=== PATIENT | female | born 1995 | race Caucasian/White ===

== ENCOUNTER 2016-05-22 12:43 | Outpatient (CLI) | payer MEDICAID | END 2016-05-22 12:44 | disposition home or self-care (01) | DX: Z36 Encounter for antenatal screening of mother (principal) ==

== ENCOUNTER 2016-07-02 12:24 | Outpatient (CLI) | payer MEDICAID | END 2016-07-02 12:25 | disposition home or self-care (01) | DX: Z36 Encounter for antenatal screening of mother (principal) ==

== ENCOUNTER 2016-08-28 08:00 | Outpatient (CLI) | payer MEDICAID | END 2016-08-28 23:59 | disposition home or self-care (01) | DX: Z34.83 Encounter for supervision of other normal pregnancy, third trimester (principal); Z11.3 Encounter for screening for infections with a predominantly sexual mode of transmission ==

== ENCOUNTER 2016-09-12 20:12 | Outpatient (CLI) | payer MEDICAID | END 2016-09-12 21:30 | disposition home or self-care (01) | DX: Z34.03 Encounter for supervision of normal first pregnancy, third trimester (principal) ==

== ENCOUNTER 2016-09-29 22:11 | Outpatient (CLI) | payer MEDICAID ==
[2016-09-29 22:34] VITALS: BP 125/63
== END 2016-09-29 23:00 | disposition home or self-care (01) ==
LOC: WFO 22:11 → OB 22:12 → WFO 23:00
PROVIDERS: ATTEND Nurse Practitioner Obstetrics & Gynecology
DX: O36.8130 Decreased fetal movements, third trimester, not applicable or unspecified (principal); Z3A.40 40 weeks gestation of pregnancy
CPT/HCPCS: 99212

== ENCOUNTER 2016-10-04 19:02 | Outpatient (CLI) | payer MEDICAID ==
[2016-10-04 19:18] VITALS: BP 127/76
== END 2016-10-04 20:10 | disposition home or self-care (01) ==
LOC: WFO 19:02 → OB 19:07 → WFO 20:10
PROVIDERS: ATTEND Nurse Practitioner Obstetrics & Gynecology
DX: O47.1 False labor at or after 37 completed weeks of gestation (principal); Z3A.40 40 weeks gestation of pregnancy
CPT/HCPCS: 99213

== ENCOUNTER 2016-10-06 00:40 | Inpatient (IN) | payer MEDICAID ==
[2016-10-06] MEDS ORDERED: SODIUM CHLORIDE FLUSH 0.9% 10 ML SYRINGE IVP ONE (01:09)
[2016-10-06] MEDS ORDERED: LACTATED RINGERS 1,000 ML IV ONE (01:29)
[2016-10-06 01:41] LABS: BASOPHILS % (AUTO) 0.3 %; EOSINOPHILS # (AUTO) 0.1 10^3/uL (0.0-0.7); EOSINOPHILS % (AUTO) 0.6 %; HCT - HEMATOCRIT 36.5 % (37.0-47.0); HGB - HEMOGLOBIN 12.7 g/dL (12.0-16.0); LYMPHOCYTES # (AUTO) 1.6 10^3/uL (1.5-3.5); LYMPHOCYTES % (AUTO) 12.5 %; MEAN CORPUSCULAR HEMOGLOBIN 31.5 pg (27.0-31.0); MEAN CORPUSCULAR HGB CONC 34.8 g/dL (32.0-36.0); MEAN CORPUSCULAR VOLUME 90.7 fL (81.0-99.0); MEAN PLATELET VOLUME 10.3 fL (7.9-10.8); MONOCYTES # (AUTO) 1.3 10^3/uL (0.0-1.0); MONOCYTES % (AUTO) 10.1 %; NEUTROPHILS % (AUTO) 76.5 %; RED BLOOD COUNT 4.02 10^6/uL (4.20-5.40); RED CELL DISTRIBUTION WIDTH 12.9 % (12.0-15.0); UNCORRECTED WHITE BLOOD COUNT 13.1 x10^3/uL; WHITE BLOOD COUNT 13.1 x10^3/uL (4.8-10.8)
[2016-10-06] MEDS ORDERED: SODIUM CHLORIDE FLUSH 0.9% 10 ML SYRINGE IVP PRN (01:45)
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
--- NOTE | 2016-10-06 02:09 | PROVIDER PROGRESS NOTE ---
Labor Progress Note - Instructions [place]/Slash: -Left hand click circles element as positive or present. -Right hand click slashes element as negative or not present. - Uterine Monitoring Uterine Monitoring Mode: positive: External toco Contraction Intensity: positive: Strong Uterine Resting Tone: positive: Soft - Monitoring Heart Rate Variability: positive: Moderate (6-25 bmp) Accelerations: positive: Present, 15x15 Decelerations: positive: Variable Strip Review: positive: Category II - Vaginal Exam Dilation (in cm): 5 Effacement (%): 90 - Labor Progress Note Labor Progress Note/Additional Text: S: Pt breathing through contractions in the bed. She is feeling most of her contractions in her front and starting to feel more intense contractions. O: SVE on admit /-2, intact membranes. FHR baseline 120, moderate variability, + accels, variable decelerations with contractions-slightly improved with position changes. A: FHR category II GBS negative Membranes intact P: Continuous monitoring Dr. King notified
[2016-10-06] MEDS ORDERED: OXYTOCIN/LACTATED RINGERS 250 ML IV ONE ×2 (02:12→12:46)
[2016-10-06] MEDS ORDERED: LIDOCAINE 1% 50 ML MDV ONE (02:25)
[2016-10-06] MEDS: LACTATED RINGERS 1,000 ML IV SCH ×3 (03:26→08:28)
[2016-10-06] MEDS ORDERED: CALCIUM CARBONATE CHEW 500 MG TABLET PO PRN (03:55)
--- NOTE | 2016-10-06 03:57 | PROVIDER PROGRESS NOTE ---
Labor Progress Note - Instructions [place]/Slash: -Left hand click circles element as positive or present. -Right hand click slashes element as negative or not present. - Uterine Monitoring Uterine Monitoring Mode: positive: External toco Contraction Intensity: positive: Strong Uterine Resting Tone: positive: Soft - Monitoring Monitor Mode: positive: External ultrasound Heart Rate Variability: positive: Moderate (6-25 bmp) Accelerations: positive: Present, 15x15 Decelerations: positive: Variable Strip Review: positive: Category II - Vaginal Exam Dilation (in cm): 0 Effacement (%): 100 Station: positive: 0
[2016-10-06] MEDS: CALCIUM CARBONATE CHEW 500 MG TABLET PO SCH ×5 (04:09→22:04)
[2016-10-06] MEDS ORDERED: SODIUM CHLORIDE FLUSH 0.9% 10 ML SYRINGE IVP SCH (06:00)
--- NOTE | 2016-10-06 06:05 | PROVIDER PROGRESS NOTE ---
Labor Progress Note - Instructions [place]/Slash: -Left hand click circles element as positive or present. -Right hand click slashes element as negative or not present. - Uterine Monitoring Uterine Monitoring Mode: positive: External toco Contraction Intensity: positive: Strong Uterine Resting Tone: positive: Soft - Monitoring Monitor Mode: positive: External ultrasound Heart Rate Variability: positive: Moderate (6-25 bmp) Accelerations: positive: Present, 15x15 Decelerations: positive: Variable Strip Review: positive: Category II - Vaginal Exam Effacement (%): 100 Station: positive: -1 - Labor Progress Note Labor Progress Note/Additional Text: S: Feeling strong urge to push with contractions. Requesting pain management. supportive at bedside. O: SVE anterior cervical lip with slight edema, otherwise complete. FHR baseline 140, +accels, variable decelerations with contractions improved with position change. O2 via nonrebreather mask on for since approximately 0230. A: 21yo @41.0wks gestation by L=9.1wk U/S Active labor GBS neg P: Anesthesia called in attempt to make patient comfortable and avoid the urge to push. Goal is to allow cervix to complete dilate and efface prior to any further attempt to push. Dr. King consulted and agrees with above plan. Continuous monitoring.
[2016-10-06] MEDS ORDERED: fent/BUPIV 2 MCG/0.125% 250 ML EP ONE (06:48)
[2016-10-06] MEDS ORDERED: ROPIVACAINE 0.2% PF 10 ML VIAL EPI ONE (07:20)
--- NOTE | 2016-10-06 08:52 | PROVIDER PROGRESS NOTE ---
Labor Progress Note - Instructions [place]/Slash: -Left hand click circles element as positive or present. -Right hand click slashes element as negative or not present. - Uterine Monitoring Uterine Monitoring Mode: positive: External toco Contraction Intensity: positive: Strong Uterine Resting Tone: positive: Soft - Monitoring Monitor Mode: positive: External ultrasound Heart Rate Variability: positive: Moderate (6-25 bmp) Accelerations: positive: Present, 15x15 Decelerations: positive: Late, Variable Strip Review: positive: Category II - Labor Progress Note Labor Progress Note/Additional Text: S: Pt feeling comfortable with epidural. sleeping at bedside. O: Contractions palpate firm every 4-6 minutes lasting 60-120 seconds with soft resting tone. FHR baseline 120, +accels, variable decelerations with contractions, few late decelerations, Moderate variability. A: 21yo @ 41.0wks gestation by L=9.1wk U/S GBS negative AROM x 6 hours P: Continuous monitoring Continue position changes in bed with peanut ball. Plan to check for resolution of anterior cervical lip. Dr. King aware of progress. Anticipate spontaneous vaginal delivery
[2016-10-06] MEDS ORDERED: WITCH HAZEL/GLYCERIN 1 EACH MED..PAD TOP PRN (12:46)
[2016-10-06] MEDS ORDERED: HYDROCORTISONE/PRAMOXINE 10 GM PR PRN (12:46)
[2016-10-06] MEDS ORDERED: HYDROcod/ACETAM 5/325 MG TABLET PO PRN (12:46)
--- NOTE | 2016-10-06 12:52 | DELIVERY NOTE ---
Delivery Note - Instructions [place]/Slash: -Left hand click circles element as positive or present. -Right hand click slashes element as negative or not present. - Labor Labor: positive: Spontaneous, Augmented by ARM - Delivery Method Delivery Method: positive: Spontaneous vaginal delivery - Presentation Presentation: positive: Vertex, SADAF - left occiput anterior - Nuchal Cord Nuchal Cord: positive: None - Amniotic Fluid Description Amniotic Fluid Description: positive: Light meconium - Laceration Laceration: positive: 2nd degree, Labial - Suture Suture Type: positive: Vicryl, Chromic Suture Size: positive: 3-0 - Delivery Outcome Delivery Outcome: positive: Livebirth - [place]: positive: Placed in direct skin contact with mother, Stimulated, Warmed , [place] used sex: positive: Male - Cord Cord: positive: 3 vessels - Placenta Placenta: positive: Intact, Spontaneous - Estimated Blood Loss Estimated Blood Loss (in cc): 250 - Post Delivery Events Post Delivery Events: positive: No post delivery events - Delivery Comments (Free Text/Narrative) Delivery Comments (Free Text/Narrative): Labor: This 21yo @ 41.0wks gestation by L=9.1wk U/S presented at 0100 in active labor. Cervix was 5/90/-2 and vertex. FHR demonstrated category II pattern throughout. AROM 0216 and was noted to be a moderate amount of light meconium fluid. Patient progressed to complete with anterior lip at approximately 0530 at which time the patient felt a strong urge to push. Trial of pushing caused the anterior cervical lip to swell. The patient then requested an epidural for pain management and was placed upon maternal request. Patient was able to rest comfortable and avoid the urge to push until adequate resolution of the anterior lip was achieved. Patient progressed to c/c/[address] King attending physician and Dr. Russell attending solution lead were both called to the bedside to be present for the related to recurrent variable and late decelerations with contractions. Normal SVB of viable male in SADAF position. No nuchal cord. Apgars were 9/ 9 at 1212 on 10/07/2016. The umbilical cord was allowed to stop pulsating and was then doubly clamped and cut by FOB. Cord blood was obtained. Placenta delivered spontaneously and intact @ 1218. 3VC. Pitocin administered via IV for hemostasis. EBL 250mL. Uterine fundus firm and there is no excessive bleeding. The perineum, vagina, and cervix were inspected and found to have 2nd degree midline laceration repaired with 3-[address]-1 needle and minor left labial laceration was repaired with 3-0 chromic on an SH in standard fashion under sterile conditions. Vaginal examination following repair was done. Tissues well approximated. initiated. Family bonding well. Both mother and baby are in stable condition.
[2016-10-06] MEDS ORDERED: LACTATED RINGERS 1,000 ML IV SCH (13:00)
[2016-10-06] MEDS: IBUPROFEN 800 MG TABLET PO SCH ×2 (15:34→20:54)
[2016-10-06] MEDS: ACETAMINOPHEN 500 MG TABLET PO SCH ×2 (15:34→23:40)
[2016-10-06] MEDS: DOCUSATE SODIUM 100 MG CAPSULE PO SCH (20:54)
[2016-10-07] MEDS: IBUPROFEN 800 MG TABLET PO SCH ×3 (04:10→18:47)
[2016-10-07] MEDS: ACETAMINOPHEN 500 MG TABLET PO SCH (07:43)
[2016-10-07] MEDS: CALCIUM CARBONATE CHEW 500 MG TABLET PO SCH (07:43)
[2016-10-07] MEDS: DOCUSATE SODIUM 100 MG CAPSULE PO SCH (07:44)
--- NOTE | 2016-10-07 08:31 | PROVIDER PROGRESS NOTE ---
Subjective - Subjective Subjective: S: Bonding well with baby. from left breast without difficulty. Baby having trouble latching on the right breast - planning to work with nurse today. Pain well controlled with ibuprofen and tylenol. Bleeding decreased. O: Heart RRR w/o M/G/R, lungs CTAB. Abdomen soft and nontender with fundus firm at U-1. Edema noted to extremities bilaterally as expected with amount of IV fluids administered during labor. +BM soft. A: 21yo -->P1 PPD#1 s/p SVB P: Continue routine self care and meds. Work with nurses on today. Plan discharge home tomorrow. Objective - Vital Signs/Intake & Output Vital Signs: Vital Signs x48h Temp Pulse Resp BP BP Pulse Ox 10/07/16 07:29 36.5 C 82 18 115/60 99 10/07/16 04:10 36.8 C 85 16 117/55 L 100 Intake & Output: Intake & Output 10/04/16 10/05/16 10/06/16 10/07/16 23:59 23:59 23:59 23:59 Output Total 2360 Balance -2360 - Lab Results Fish Bones: 10/06/16 01:15
[2016-10-07] MEDS: ONDANSETRON ODT 4 MG TABLET TL PRN ×2 (10:50→18:47)
[2016-10-07] MEDS ORDERED: PANTOPRAZOLE 40 MG TABLET PO SCH (23:45)
[2016-10-08] MEDS: IBUPROFEN 800 MG TABLET PO SCH ×2 (01:03→06:52)
[2016-10-08] MEDS: ONDANSETRON ODT 4 MG TABLET TL PRN ×2 (01:04→06:53)
[2016-10-08] MEDS: ACETAMINOPHEN 500 MG TABLET PO SCH ×2 (06:59→07:51)
[2016-10-08] MEDS ORDERED: PANTOPRAZOLE 40 MG TABLET PO SCH (07:00)
[2016-10-08 08:04] VITALS: BP 126/72
--- NOTE | 2016-10-08 08:23 | Discharge Plan ---
Discharge Plan Disposition: 01 Home, Self Care Condition: Good Diet: Regular Activity Restrictions: No Restrictions Shower Restrictions: No Driving Restrictions: No Weight Bearing: Full Weight Additional Instructions or Follow Up instructions: S: Bonding well with baby. without difficulty - baby having transitional stools since yesterday. Baby cluster fed throughout the night. Pain well controlled with ibuprofen. Pt having a flare up of her IBS, having some bowel discomfort and GERD. Bleeding decreased and is light. Perineum comfortable. Overall significant decrease in discomfort from yesterday. O: Heart RRR w/o M/G/R. Lungs CTAB. Abdomen soft and nontender with fundus firm at U-2. Light lochia rubra. Repair without edema. Bilateral LE's mild edema - improved from yesterday. Yasmin's neg. P: Reviewed pp self care and warning signs. Rx handwritten and given to patient for Ibuprofen 800mg 1 tab PO q 8hrs PRN pain # 60 with 1 refill and Colace 100mg 1 tab PO PRN constipation #60 with 1 refill. Pt planning mini-pill at 6 weeks pp. F/u with myself and [facility] at 2 and 6 weeks. Pt verbalized understanding and agrees to above plan. Denies further questions or concerns today. No Smoking: If you smoke, Please STOP! Call for help. Follow-up with: Alice Dyer CNM, JOSE [Provider Admit Priv/Credential] -
[2016-10-08] MEDS ORDERED: CALCIUM CARBONATE CHEW 500 MG TABLET PO SCH (09:00)
[2016-10-08] MEDS: DOCUSATE SODIUM 100 MG CAPSULE PO SCH (09:24)
--- NOTE | 2016-10-08 09:57 | Labor Flowsheet ---
Labor Flowsheet Datetime Report Generated by CPN: 10/08/2016 09:57 Datetime: 10/07/2016 23:39 Temperature (F): 97.7 Temperature (C): 36.5 Temperature (C): 36.5 LaborFlag: Labor Datetime: 10/07/2016 23:38 VITAL SIGNS NBP Sys/Emily/Mean (mmHg): 128 : 74 : 84 Pulse: 73 Datetime: 10/07/2016 07:29 SpO2 (%): 99 Datetime: 10/06/2016 11:45 UTERINE ACTIVITY Monitor Mode: External Monitor Interventions for UA: [place] Adjusted Frequency (min): 2-3 Quality: Strong Duration (sec): 60-70 Pattern: Normal: <= 5 Contractions in 10 Minutes Resting Tone (Palpate): Relaxed Contraction Comments: Althea B. palpating u/cs/ toco not tracing well ASSESSMENT A Monitor Mode: External US FHR Baseline Rate : 150 Variability: Moderate 6-25 bpm Decelerations: Variable Category: Category II PATIENT CARE Oxygen Amount (LPM): 10 Oxygen Method: Non-Rebreather Datetime: 10/06/2016 11:15 Accelerations: 15X15 Datetime: 10/06/2016 10:32 COMMUNICATION Communication: Provider at Bedside Communication Comments: Dr King at bedside, evaluating progress Datetime: 10/06/2016 10:29 Vaginal Exam Comments: pushing well with U/Cs Datetime: 10/06/2016 10:25 Provider Notified (Name): Dr King Notification Reason: Status Update; Status; Labor Status Datetime: 10/06/2016 10:11 Stage of : Labor Stage 2 Comments: 1011- Alice Gomez here Datetime: 10/06/2016 10:10 VAGINAL EXAM Dilatation (cm): 10.0 Effacement (%): 100 Station: 2 Exam by: SHAYE Navarro Vaginal Bleeding: Normal Show Cervix, Consistency: Soft Cervix, Position: Anterior Position 'A': Left Occipital Anterior Procedures: Sterile Vag Exam Patient Position/Activity: Left Tilt Datetime: 10/06/2016 10:09 ASSESSMENT E FHR Baseline Rate : 90 Datetime: 10/06/2016 10:08 Actions for Decelerations: Side to Side Datetime: 10/06/2016 09:49 Hygiene: Natacha Care; Underpad Changed I/O Interventions: Straight Cath (ml) @ 425 ml Datetime: 10/06/2016 09:14 FHR Baseline Changes: No Baseline Change Datetime: 10/06/2016 08:39 Patient Care Comments: Repositioned to far left/peanut ball Datetime: 10/06/2016 07:44 Comments: Returned to R side for better tracing Datetime: 10/06/2016 06:40 MEDICATIONS Magnesium/Antihypertensives: Ephedrine IV (mg) @ 15 Datetime: 10/06/2016 06:22 Epidural Procedure: Test Dose; Loading Dose Anesthesia Comments: partial load Datetime: 10/06/2016 06:10 PROCEDURE TIME OUT Procedure Verify: Correct Patient Identity; Correct Side and Site are Marked; Accurate Procedure Co nsent Form; Agreement on Procedure to be Done; Correct Patient Position; Relevant Images and Results are Properly Labeled and Displayed; Addressed Need to Administer Antibiotics or Fluids for Irrigation ; Safety Precautions Based on Patient History or Medication Use ANESTHESIA Anesthesia Plans: Epidural Epidural Positioning: Sitting Datetime: 10/06/2016 05:14 STAGE 2 Pushing: Coached on Pushing; Urge to Push Pushing Position: Pushing with Contractions Pushing Progress: Descent with Pushing Datetime: 10/06/2016 03:50 Monitor Interventions for FHR: Ultrasound Adjusted Datetime: 10/06/2016 02:18 Membranes Rupture Method: Artificial Amniotic Fluid Color: Light Meconium Amniotic Fluid Amount: Small
--- NOTE | 2016-10-15 02:18 | DISCHARGE SUMMARY ---
DATE OF ADMISSION: 10/06/2016 DATE OF DISCHARGE: 10/08/2016 DIAGNOSES ON ADMISSION 1. A 21-year-old, G1, P0 at 41.0 weeks' gestation. 2. Active labor. DIAGNOSES ON DISCHARGE 1. A 21-year-old, G1, P1-0-0-1, status post spontaneous vaginal delivery on 10/07/2016. 2. Normal recovery. BRIEF HISTORY: The patient is a patient at [facility] who presented on 10/06/2016 in active labor. Her cervix was 5 cm dilated, 90% effaced, at -2 station, and vertex. She was found to b e in active labor. heart rate demonstrated a category 2 pattern throughout. She spontaneously delivered a viable male named Gavin at 1212 hours on 10/07/2016. Apgars wer e 9 and 9 at one and five minutes, respectively. Estimated blood loss was 250 mL. She was found to antunez ve a second-degree midline laceration repaired at bedside in standard fashion under sterile condition s. She has been doing well in her course. She is ambulating and tolerating a regular diet. Julieth ramirez is urinating without difficulty, and her lochia is normal. Her pain is well controlled with oral me dications. She will be discharged home today on day #2 with prescriptions for ibuprofen an d Colace. She intends to follow up with me at [facility] in 2 weeks. She has been giv en precautions to call if she has any worsening fevers, chills, abdominal pain, or foul-smelling vagi nal lochia. JOB #: [id number] EXT JOB #:[id number]
== END 2016-10-08 09:50 | disposition home or self-care (01) | DRG 775 ==
LOC: WFO 00:40 → OB 00:42 → WFO 00:59 → OB 01:00
PROVIDERS: ADMIT Nurse Practitioner Obstetrics & Gynecology; ATTEND Nurse Practitioner Obstetrics & Gynecology
PROC: 10E0XZZ Delivery of Products of Conception, External Approach (ICD-10-PCS; principal; 2016-10-06)
PROC: 0KQM0ZZ Repair Perineum Muscle, Open Approach (ICD-10-PCS; 2016-10-06)
PROC: 10907ZC Drainage of Amniotic Fluid, Therapeutic from Products of Conception, Via Natural or Artificial Opening (ICD-10-PCS; 2016-10-06)
DX: O48.0 Post-term pregnancy (principal); Z3A.41 41 weeks gestation of pregnancy; Z37.0 Single live birth; O76 Abnormality in fetal heart rate and rhythm complicating labor and delivery; O77.0 Labor and delivery complicated by meconium in amniotic fluid; O70.1 Second degree perineal laceration during delivery; O70.0 First degree perineal laceration during delivery; O99.62 Diseases of the digestive system complicating childbirth; K21.9 Gastro-esophageal reflux disease without esophagitis; K58.9 Irritable bowel syndrome, unspecified; Z62.819 Personal history of unspecified abuse in childhood; Z86.19 Personal history of other infectious and parasitic diseases
CPT/HCPCS: 85025; 99213

== ENCOUNTER 2016-12-23 20:13 | Outpatient (CLI) | payer MEDICAID, OTHER | END 2016-12-23 20:14 | disposition home or self-care (01) | LOC: LAB.R 20:13 | PROVIDERS: ATTEND Nurse Practitioner Obstetrics & Gynecology | DX: N76.0 Acute vaginitis (principal) | CPT/HCPCS: 87480; 87510; 87660 ==

== ENCOUNTER 2016-12-24 10:51 | Outpatient (CLI) | payer MEDICAID, OTHER ==
--- NOTE | 2016-12-24 11:42 | XRAY Report ---
FOUR-VIEW LEFT WRIST: 12/24/2016 CLINICAL INDICATION: Pain, snuffbox tenderness. FINDINGS: AP, lateral, oblique, scaphoid views of the left wrist demonstrate no evidence of fracture or dislocation. The joint spaces are preserved. No radiopaque foreign body is seen in the soft tis sues. IMPRESSION: NORMAL LEFT WRIST. JOB #: [id number] EXT JOB #:[id number]
== END 2016-12-24 10:52 | disposition home or self-care (01) ==
LOC: DI.N 10:51 → MERGE 11:00
PROVIDERS: ATTEND Specialist
DX: M25.532 Pain in left wrist (principal)

== ENCOUNTER 2016-12-24 16:38 | Outpatient (CLI) | payer MEDICAID, OTHER | END 2016-12-24 16:39 | disposition home or self-care (01) | LOC: LAB.R 16:38 | PROVIDERS: ATTEND Nurse Practitioner Obstetrics & Gynecology | DX: N76.0 Acute vaginitis (principal) | CPT/HCPCS: 87480; 87510; 87660 ==

== ENCOUNTER 2017-12-01 10:34 | Outpatient (CLI) | payer OTHER | END 2017-12-01 10:35 | disposition home or self-care (01) | LOC: LAB.R 10:34 | PROVIDERS: ATTEND Registered Nurse | DX: N76.1 Subacute and chronic vaginitis (principal) | CPT/HCPCS: 87491; 87591 ==

== ENCOUNTER 2017-12-01 10:40 | Outpatient (CLI) | payer OTHER ==
[2017-12-01 13:33] LABS: T4 (THYROXINE) 8.3 ug/dL (6.09-12.23)
[2017-12-01 13:37] LABS: THYROID STIMULATING HORMONE 1.64 uIU/mL (0.34-5.60)
[2017-12-01 13:39] LABS: FREE T4 (FREE THYROXINE) 0.83 ng/dL (0.58-1.64)
[2017-12-03 12:31] LABS: THYROID PEROXIDASE ANTIBODIES 1 IU/mL (<9)
== END 2017-12-01 10:41 | disposition home or self-care (01) ==
LOC: LAB 10:40
PROVIDERS: ATTEND Registered Nurse
DX: R53.82 Chronic fatigue, unspecified (principal); N76.1 Subacute and chronic vaginitis
CPT/HCPCS: 36415; 84436; 84439; 84443; 84480; 84481; 86376; 86800; 87491; 87591

== ENCOUNTER 2017-12-17 17:51 | Outpatient (CLI) | payer OTHER | END 2017-12-17 17:52 | disposition home or self-care (01) | LOC: LAB.R 17:51 | PROVIDERS: ATTEND Registered Nurse | DX: N76.1 Subacute and chronic vaginitis (principal) | CPT/HCPCS: 87070; 87181; 87491; 87591 ==

== ENCOUNTER 2017-12-25 14:26 | Outpatient (CLI) | payer OTHER ==
[2017-12-25 19:10] LABS: BASOPHILS # (AUTO) 0.1 10^3/uL (0.0-0.1); BASOPHILS % (AUTO) 0.9 %; EOSINOPHILS # (AUTO) 0.1 10^3/uL (0.0-0.7); EOSINOPHILS % (AUTO) 1.1 %; HGB - HEMOGLOBIN 13.2 g/dL (12.0-16.0); LYMPHOCYTES # (AUTO) 2.1 10^3/uL (1.5-3.5); LYMPHOCYTES % (AUTO) 27.9 %; MEAN CORPUSCULAR HEMOGLOBIN 30.8 pg (27.0-31.0); MEAN CORPUSCULAR HGB CONC 34.6 g/dL (32.0-36.0); MEAN CORPUSCULAR VOLUME 89.1 fL (81.0-99.0); MEAN PLATELET VOLUME 10.1 fL (7.9-10.8); MONOCYTES # (AUTO) 0.5 10^3/uL (0.0-1.0); MONOCYTES % (AUTO) 7.1 %; NEUTROPHILS # (AUTO) 4.8 10^3/uL (1.5-6.6); PLT - PLATELET COUNT 188 10^3/uL (130-450); RED BLOOD COUNT 4.28 10^6/uL (4.20-5.40); WHITE BLOOD COUNT 7.7 x10^3/uL (4.8-10.8)
[2017-12-25 19:33] LABS: BILIRUBIN,URINE NEGATIVE (NEGATIVE); GLUCOSE, URINE (UA) NEGATIVE (NEGATIVE); KETONES,URINE (UA) TRACE mg/dL (NEGATIVE); LEUKOCYTE ESTERASE, URINE SMALL (NEGATIVE); NITRITE,URINE NEGATIVE (NEGATIVE); OCCULT BLOOD,URINE NEGATIVE (NEGATIVE); PROTEIN,URINE NEGATIVE (NEGATIVE); UROBILINOGEN,URINE 0.2 (NORMAL) E.U./dL (NORMAL)
[2017-12-25 19:39] LABS: CLARITY,URINE HAZY (CLEAR)
[2017-12-25 20:05] LABS: BACTERIA,URINE Moderate /HPF (None Seen); RBC,URINE 0-5 /HPF (0-5); SQUAMOUS EPITHELIAL CELL,UR MANY Squamous (<= Few)
[2017-12-25 20:54] LABS: HB2 TOTAL 13.9 g/dL; HEMOGLOBIN A1C 0.43 g/dL
[2017-12-26 10:45] LABS: HEPATITIS B SURFACE ANTIGEN NON-REACTIVE (NON-REACTIVE)
[2017-12-26 10:46] LABS: HEPATITIS C ANTIBODY NON-REACTIVE (NON-REACTIVE)
[2017-12-26 15:12] LABS: HIV AG/AB 4TH GEN NON-REACTIVE (NON-REACTIVE)
== END 2017-12-25 14:27 | disposition home or self-care (01) ==
LOC: LAB.N 14:26
PROVIDERS: ATTEND Nurse Practitioner Obstetrics & Gynecology
DX: Z36.9 Encounter for antenatal screening, unspecified (principal)
CPT/HCPCS: 36415; 81001; 81599; 83036; 85025; 86592; 86762; 86803; 86850; 86900; 86901; 87340; 87389

== ENCOUNTER 2018-01-16 11:13 | Outpatient (CLI) | payer OTHER ==
--- NOTE | 2018-01-16 12:48 | Ultrasound Report ---
Reason: ENCTR FOR TEST, RESULT POSITIVE Procedure Date: 01/16/2018 Accession Number: [id number] / [id number] Procedure: US - OB First Trimester CPT Code: FULL RESULT: EXAM: FIRST TRIMESTER OBSTETRIC ULTRASOUND (Less than 11 weeks) EXAM DATE: 01/16/2018 12:13 PM. CLINICAL HISTORY: ENCTR FOR TEST, RESULT POSITIVE. LMP: Unknown. COMPARISONS: None. TECHNIQUE: Transabdominal and transvaginal ultrasound examination with static image documentation. CLINICAL DATES: LMP unknown ASSESSMENT: Gestational Sac: Single intrauterine. Mean gestational sac diameter: 38.6 mm = 9 weeks 0 days. Embryo: CRL (crown-rump length) 29 mm = 9 weeks 3 days. Cardiac activity: 164 beats per minute. Yolk sac: 3.5 mm. Amniotic fluid: Not accurately assessed at this gestational age. Early placenta: Not visible at this gestational age. Other: No perigestational fluid collection demonstrated. MATERNAL STRUCTURES: Uterus: Anteverted/Retroverted. Unremarkable. Cervix: Closed. Right Ovary/Adnexa: The ovary measures 2.5 x 1.9 x 1.5 cm, volume 4 cc. Unremarkable. Left Ovary/Adnexa: The ovary measures 3.5 x 2.0 x 1.8 cm, volume 6 cc. Free Fluid: None. Likely corpus luteum.. IMPRESSION: 1. Single viable intrauterine at EGA 9 weeks 3 days with ORLIN 08/18/2018 based on crown-rump length. 2. Assigned dating is ORLIN 08/18/2018 based on current ultrasound. RADIA
[2018-01-20 13:51] LABS: HSV 2 IGG TYPE SPECIFIC AB <0.90 index
== END 2018-01-16 11:14 | disposition home or self-care (01) ==
LOC: DI 11:13
PROVIDERS: ATTEND Registered Nurse
DX: Z32.01 Encounter for pregnancy test, result positive (principal); Z11.3 Encounter for screening for infections with a predominantly sexual mode of transmission; Z3A.09 9 weeks gestation of pregnancy
CPT/HCPCS: 36415; 76801; 81599; 86695; 86696

== ENCOUNTER 2018-01-16 16:23 | Outpatient (CLI) | payer OTHER ==
[2018-01-21 00:20] LABS: HSV 2 DNA NOT DETECTED; SOURCE VAGINAL LESION
== END 2018-01-16 16:24 | disposition home or self-care (01) ==
LOC: LAB.R 16:23
PROVIDERS: ATTEND Nurse Practitioner Obstetrics & Gynecology
DX: Z11.3 Encounter for screening for infections with a predominantly sexual mode of transmission (principal)
CPT/HCPCS: 87529

== ENCOUNTER 2018-01-27 12:41 | Outpatient (CLI) | payer SELFPAY | END 2018-01-27 12:42 | disposition home or self-care (01) | LOC: LAB 12:41 | PROVIDERS: ATTEND Nurse Practitioner Obstetrics & Gynecology | DX: Z13.79 Encounter for other screening for genetic and chromosomal anomalies (principal); Z01.89 Encounter for other specified special examinations | CPT/HCPCS: 36415 ==

== ENCOUNTER 2018-03-16 10:58 | Outpatient (CLI) | payer OTHER | END 2018-03-16 10:59 | LOC: LAB.R 10:58 | PROVIDERS: ATTEND Nurse Practitioner Obstetrics & Gynecology | DX: N89.8 Other specified noninflammatory disorders of vagina (principal) | CPT/HCPCS: 87480; 87510; 87660 ==

== ENCOUNTER 2018-04-06 07:46 | Outpatient (CLI) | payer OTHER ==
--- NOTE | 2018-04-06 16:19 | Ultrasound Report ---
Reason: ENCTR FOR SUPRVSN OF NORMAL , 2ND TRIM Procedure Date: 04/06/2018 Accession Number: [id number] / [id number] Procedure: US - OB Detailed Eval CPT Code: FULL RESULT: EXAM: COMPLETE OBSTETRICAL ULTRASOUND EXAM DATE: 04/06/2018 10:30 AM. CLINICAL HISTORY: anatomic survey. COMPARISON: OB detailed eval 05/22/2016 12:47 PM. TECHNIQUE: Real-time sonographic evaluation of the fetus performed by the section plotter operator. Multiple title insurance sales representative static images were saved for review. DATING: Established EGA 20 weeks 6 days with ORLIN 08/18/2018 based on obstetric provider supplied ORLIN/ultrasound. EGA 21 weeks 1 day with ORLIN 08/16/2018 based on the current ultrasound. GENERAL EVALUATION [place] . Cardiac activity: 144 bpm. movement: Visualized. Presentation: Cephalic. Placenta: Posterior position. No evidence for previa. Umbilical cord: 3 vessel cord. Central placental cord origin. Amniotic fluid: Subjectively normal. MVP 4.2 cm, TYRELL 12.3 cm. BIOMETRY Bi-Parietal Diameter (BPD): 5.0 cm, 21 weeks 2 days Head Circumference (HC): 19.2 cm, 21 weeks 3 days Abdominal Circumference (AC): 15.7 cm, 20 weeks 6 days Femur Length (FL): 3.5 cm, 21 weeks 0 days Estimated Weight: 390 g, 51st percentile for 20 weeks 6 days. ANATOMY The intracranial structures, profile, face/nose/lips, spine, 4 chamber heart and outflow tracts, stomach, abdominal wall and cord insertion, diaphragm, kidneys, bladder, and extremities were visualized and demonstrate no abnormality. MATERNAL STRUCTURES Uterus: Unremarkable. Cervix: Long and closed. Transabdominal length 4.4 cm. Right ovary/adnexa: Unremarkable. Left ovary/adnexa: Unremarkable. Free fluid: None. IMPRESSION: 1. Yeung live intrauterine with gestational age 20 weeks 6 days based on obstetric provider supplied estimated due date. 2. Estimated weight is within expected limits for assigned dating. 3. Normal anatomic survey. No anatomic abnormalities are detected at this time. RADIA
== END 2018-04-06 07:47 | disposition home or self-care (01) ==
LOC: DI 07:46
PROVIDERS: ATTEND Registered Nurse
DX: Z34.82 Encounter for supervision of other normal pregnancy, second trimester (principal)
CPT/HCPCS: 76811

== ENCOUNTER 2018-04-21 08:00 | Outpatient (CLI) | payer OTHER | END 2018-04-21 23:59 | disposition home or self-care (01) | LOC: LAB.R 08:00 | PROVIDERS: ATTEND Obstetrics & Gynecology | DX: N76.0 Acute vaginitis (principal) | CPT/HCPCS: 87480; 87510; 87660 ==

== ENCOUNTER 2018-05-04 08:24 | Outpatient (CLI) | payer OTHER ==
[2018-05-04 13:44] LABS: HGB - HEMOGLOBIN 12.7 g/dL (12.0-16.0); MEAN CORPUSCULAR HEMOGLOBIN 32.3 pg (27.0-31.0); MEAN CORPUSCULAR HGB CONC 34.7 g/dL (32.0-36.0); MEAN PLATELET VOLUME 10.2 fL (7.9-10.8); RED BLOOD COUNT 3.92 10^6/uL (4.20-5.40); RED CELL DISTRIBUTION WIDTH 13.5 % (12.0-15.0); WHITE BLOOD COUNT 6.3 x10^3/uL (4.8-10.8)
== END 2018-05-04 08:25 | disposition home or self-care (01) ==
LOC: LAB.N 08:24
PROVIDERS: ATTEND Obstetrics & Gynecology
DX: Z33.1 Pregnant state, incidental (principal)
CPT/HCPCS: 36415; 82950; 85027; 86850

== ENCOUNTER 2018-05-20 08:00 | Outpatient (CLI) | payer OTHER | END 2018-05-20 23:59 | disposition home or self-care (01) | LOC: LAB.R 08:00 | PROVIDERS: ATTEND Registered Nurse | DX: R30.0 Dysuria (principal) | CPT/HCPCS: 87086 ==

== ENCOUNTER 2018-05-30 19:24 | Emergency (ER) | payer OTHER ==
--- NOTE | 2018-05-30 21:00 | ED Physician Documentation ---
History of Present Illness - Stated complaint Stated Complaint: COUGH/FATIGUE/36WK PREG - Chief complaint Chief Complaint: General - History obtained from History obtained from: Patient - History of Present Illness Timing: Other ( at 29weeks, s/p sinusitis with tx with augmentin on day 4/5. Those sx are improving but has 14 days cough with post nasal drip. Cough sputum was garcia/yellow now clear. Dyspnea on exertion.) Review of Systems Constitutional: denies: Fever, Chills Nose: reports: Rhinorrhea / runny nose Respiratory: reports: Dyspnea, Cough GI: reports: Abdominal Pain (upper "from coughing") PD PAST MEDICAL HISTORY - Past Medical History Past Medical History: Yes GI: GERD, Crohn's disease - Past Surgical History Past Surgical History: Yes General: Cholecystectomy HEENT: Tonsil/Adenoidectomy - Present Medications Home Medications: Ambulatory Orders Medication Instructions Recorded Confirmed Bcp 12/04/15 Calcium Carbonate/Vitamin D3 1 tab PO DAILY 12/04/15 12/04/15 [Calcium 500-Vit D3 600 Tablet] Esomeprazole Magnesium [Nexium] 20 mg PO DAILY 12/04/15 12/04/15 Phenazopyridine HCl [Pyridium] 200 mg PO TID PRN #6 tablet 12/04/15 Sulfamethoxazole/Trimethoprim 1 each PO BID #5 tablet 12/04/15 [Bactrim Ds Tablet] Albuterol Sulf [Ventolin Hfa 1 - 2 puffs INH Q4HR PRN #1 inhaler 05/30/18 Inhaler] Benzonatate [Tessalon Perle] 100 - 200 mg PO TID PRN #30 capsule 05/30/18 guaiFENesin/CODEINE [Robitussin AC] 5 - 10 ml PO Q6H PRN #120 ml 05/30/18 - Allergies Allergies/Adverse Reactions: Allergies Allergy/AdvReac Type Severity Reaction Status Date / Time No Known Drug Allergies Allergy Verified 05/30/18 19:39 - Social History Does the pt smoke?: No Smoking Status: Never smoker Does the pt drink ETOH?: No Does the pt have substance abuse?: No - Immunizations Immunizations are current?: Yes - POLST Patient has POLST: No PD ED PE NORMAL - Vitals Vital signs reviewed: Yes - General General: Alert and oriented X 3, No acute distress - Neck Neck: Supple, no meningeal sign, No bony TTP - Cardiac Cardiac: RRR, No murmur - Respiratory Respiratory: No respiratory distress, Clear bilaterally - Abdomen Abdomen: Non tender - Female Female : Other (wilfred roberts with IUP FHT 146) - Derm Derm: Normal color, Warm and dry - Extremities Extremities: No edema, No calf tenderness / cord - Neuro Neuro: Alert and oriented X 3 - Psych Psych: Normal mood, Normal affect Results - Vitals Vitals: Vital Signs - 24 hr 05/30/18 19:36 Temperature 36.5 C Heart Rate 93 Respiratory 18 Rate Blood Pressure 119/70 O2 Saturation 99 Oxygen O2 Source Room air PD MEDICAL DECISION MAKING - ED course ED course: This is a 23-year-old with a bad cough but seems viral especially in light of lack of improvement on antibiotics. She was administered albuterol and codeine. Departure - Departure Disposition: Home, Self Care Clinical Impression: Viral bronchitis, 29 weeks gestation of Condition: Good Record reviewed to determine appropriate education?: Yes Instructions: ED Upper Resp Infec No Abx Tx Prescriptions: Albuterol Sulf [Ventolin Hfa Inhaler] 1 - 2 puffs INH Q4HR PRN #1 inhaler PRN Reason: Shortness Of Air/Wheezing Benzonatate [Tessalon Perle] 100 - 200 mg PO TID PRN #30 capsule PRN Reason: Cough guaiFENesin/CODEINE [Robitussin AC] 5 - 10 ml PO Q6H PRN #120 ml PRN Reason: Cough Comments: Call your doctor to arrange a follow-up appointment, make the next available appointment. In the interim, return anytime if worse or if new symptoms develop.
[2018-05-30] MEDS ORDERED: guaiFENesin/CODEINE 5 ML UDC PO STA (21:15)
[2018-05-30] MEDS ORDERED: ALBUTEROL NEB 2.5 MG/3 ML INH STA (21:15)
[2018-05-30 21:47] VITALS: BP 116/60
== END 2018-05-30 21:47 | disposition home or self-care (01) ==
LOC: ED 19:24
DX: O99.513 Diseases of the respiratory system complicating pregnancy, third trimester (principal); Z3A.29 29 weeks gestation of pregnancy; J20.8 Acute bronchitis due to other specified organisms; B97.89 Other viral agents as the cause of diseases classified elsewhere
CPT/HCPCS: 94640; 94664; 99283; A9270

== ENCOUNTER 2018-06-23 08:00 | Outpatient (CLI) | payer OTHER | END 2018-06-23 23:59 | disposition home or self-care (01) | LOC: LAB.R 08:00 | PROVIDERS: ATTEND Nurse Practitioner Obstetrics & Gynecology | DX: B37.3 Candidiasis of vulva and vagina (principal) | CPT/HCPCS: 87480; 87510; 87660 ==

== ENCOUNTER 2018-07-15 09:46 | Outpatient (CLI) | payer OTHER ==
[2018-07-15 10:13] VITALS: BP 114/77
== END 2018-07-15 10:30 | disposition home or self-care (01) ==
LOC: WFO 09:46 → FBP 09:49 → WFO 10:30
PROVIDERS: ATTEND Obstetrics & Gynecology
DX: O26.893 Other specified pregnancy related conditions, third trimester (principal); R05 Cough
CPT/HCPCS: 99212

== ENCOUNTER 2018-07-15 10:36 | Emergency (ER) | payer OTHER ==
[2018-07-15 10:44] VITALS: BP 122/61
[2018-07-15] MEDS ORDERED: BENZONATATE 100 MG CAPSULE PO STA (11:10)
--- NOTE | 2018-07-15 11:12 | ED Physician Documentation ---
PD HPI URI - Stated complaint Stated Complaint: SOA/36 WKS - Chief complaint Chief Complaint: Resp - History obtained from History obtained from: Patient - History of Present Illness Timing - onset: How many days ago (4) Timing duration: Days (4) Pain level max: 0 Pain level now: 0 Associated symptoms: Nasal congestion, Rhinorrhea, Dry cough. No: Fever, Chills Contributing factors: Sick contact Improves by: Rest Worsened by: Activity, Breathing - Additional information Additional information: pt is 36 weeks Review of Systems Constitutional: denies: Fever, Chills Nose: reports: Rhinorrhea / runny nose Respiratory: reports: Cough. denies: Dyspnea, Wheezing GI: denies: Abdominal Pain, Nausea, Vomiting Skin: denies: Rash PD PAST MEDICAL HISTORY - Past Medical History Past Medical History: Yes GI: GERD, Crohn's disease - Past Surgical History Past Surgical History: Yes General: Cholecystectomy HEENT: Tonsil/Adenoidectomy - Present Medications Home Medications: Ambulatory Orders Medication Instructions Recorded Confirmed Calcium Carbonate/Vitamin D3 1 tab PO DAILY 12/04/15 12/04/15 [Calcium 500-Vit D3 600 Tablet] Albuterol Sulf [Ventolin Hfa 1 - 2 puffs INH Q4HR PRN #1 inhaler 05/30/18 Inhaler] guaiFENesin/CODEINE [Robitussin AC] 5 - 10 ml PO Q6H PRN #120 ml 05/30/18 Acetaminophen/Cod 300/30 [Tylenol 1 each PO Q4-6H PRN #14 tablet 07/15/18 #3] Benzonatate [Tessalon Perle] 100 - 200 mg PO TID PRN #30 capsule 07/15/18 raNITIdine [Zantac] 1 tab ORAL BID 07/15/18 07/15/18 - Allergies Allergies/Adverse Reactions: Allergies Allergy/AdvReac Type Severity Reaction Status Date / Time No Known Drug Allergies Allergy Verified 07/15/18 10:44 - Social History Does the pt smoke?: No Smoking Status: Never smoker Does the pt drink ETOH?: No Does the pt have substance abuse?: No - Immunizations Immunizations are current?: Yes - POLST Patient has POLST: No PD ED PE NORMAL - Vitals Vital signs reviewed: Yes - General General: Alert and oriented X 3, No acute distress, Well developed/nourished - HEENT HEENT: PERRL, Ears normal, Moist mucous membranes, Pharynx benign - Neck Neck: Supple, no meningeal sign - Cardiac Cardiac: RRR, Strong equal pulses - Respiratory Respiratory: No respiratory distress, Clear bilaterally - Abdomen Abdomen: Soft, Non tender, Non distended - Derm Derm: Warm and dry, No rash - Neuro Neuro: Alert and oriented X 3 - Psych Psych: Normal mood, Normal affect Results - Vitals Vitals: Vital Signs - 24 hr 07/15/18 10:38 Temperature 36.3 C L Heart Rate 87 Respiratory 16 Rate Blood Pressure 122/61 O2 Saturation 99 Oxygen O2 Source Room air PD MEDICAL DECISION MAKING - ED course Complexity details: considered differential, d/w patient, d/w qm consultant ED course: 23-year-old female presents to the emergency department with a viral URI. Patient is well-appearing, nontoxic. Afebrile. No hypoxia. Requesting something for her cough. Discussed the case with Dr. King, gynecology and will prescribe Tessalon and Tylenol No. 3. Patient counseled regarding signs and symptoms for which I believe and urgent re-evaluation would be necessary. Patient with good understanding of and agreement to plan and is comfortable going home at this time This document was made in part using voice recognition software. While efforts are made to proofread this document, sound alike and grammatical errors may occur. Departure - Departure Disposition: 01 Home, Self Care Clinical Impression: Viral URI Condition: Good Instructions: ED URI Viral Follow-Up: DANIE WATSON [Primary Care Provider] - Within 1 week Prescriptions: Acetaminophen/Cod 300/30 [Tylenol #3] 1 each PO Q4-6H PRN #14 tablet PRN Reason: pain Benzonatate [Tessalon Perle] 100 - 200 mg PO TID PRN #30 capsule PRN Reason: Cough Comments: Return if you worsen. Follow-up with your doctor for further care. Discharge Date/Time: 07/15/18 11:20
== END 2018-07-15 11:20 | disposition home or self-care (01) ==
LOC: ED 10:36
DX: O26.893 Other specified pregnancy related conditions, third trimester (principal); R05 Cough; Z3A.36 36 weeks gestation of pregnancy
CPT/HCPCS: 99212; 99283; A9270

== ENCOUNTER 2018-07-20 08:00 | Outpatient (CLI) | payer OTHER | END 2018-07-20 23:59 | disposition home or self-care (01) | LOC: LAB.R 08:00 | PROVIDERS: ATTEND Registered Nurse | DX: Z34.90 Encounter for supervision of normal pregnancy, unspecified, unspecified trimester (principal); N39.9 Disorder of urinary system, unspecified | CPT/HCPCS: 87086; 87491; 87591; 87797 ==

== ENCOUNTER 2018-07-21 08:27 | Outpatient (CLI) | payer OTHER ==
[~2018-07-21 08:27] MED LIST: SODIUM CHLORIDE FLUSH 0.9% 10 ML SYRINGE IVP PRN
--- NOTE | 2018-07-21 08:38 | PROVIDER PROGRESS NOTE ---
Subjective - Prog Note Date Prog Note Date: 07/21/18 Prog Note Time: 08:35 - Subjective Subjective: Vaishali presents via personal vehicle transport by her , accompanied also by their toddler son. She is s/p a fall from more than a dozen stairs after which she made direct blunt impact to her abdomen by falling onto it. She skinned her b/l hands. She is 36 weeks by first trimester US & has received consistent care t/o her . Her has been complicated by persistent vulvovaginal candidiasis, refractory to -azole treatment, and psoriatic condition of the vulva; she also has recently had a viral illness w/ cough. She denies LOF/VB. She reports good FM. She is tearful & very scared. Her blood type is A+ Objective - Vital Signs/Intake & Output Reviewed Vital Signs: No Vital Signs: BP 124/72; HR 110 - Objective General Appearance: positive: No acute distress, Alert Eyes Bilateral: positive: Normal inspection, PERRL, EOMI Respiratory: positive: Chest non-tender Abdomen: positive: Non-tender, Other (gravid; soft to palpation; lie longitudinal; presentation cephalic) Skin: positive: Color nml, No rash, Warm, Dry, Other (multiple tattoos) Extremities: positive: Non-tender, Full ROM, Nml appearance, No pedal edema. negative: Calf tenderness Neurologic/Psychiatric: positive: Oriented x3, CN's nml (2-12), Motor nml, Sensation nml, Other (tearful) ABX Reporting Has patient been on IV antibiotics over the past 48 hours?: No Assessment/Plan - Problem List (1) Abdominal trauma Impression: 23 y/o @ 36w0d s/p blunt abdominal trauma, no overt s/sx abruption @ this time, status cat I; no decelerations. Abd gravid but otherwise s, nt. Plan: 1. insert 2 18g peripheral IV sites 2. cbc now, repeat x4 hours, fibrinogen, K-b 3. stat US to evaluate placentation 4. 4 hours minimum CEFM 5. Reviewed plan of care w/ pt and RN @ bedside; both in agreement, without concerns; reviewed clinical scenario & plan of care w/ Dr. Christine MD, who concurs & requests no additional evaluation/intervention @ this time Qualifiers: Encounter type: initial encounter Qualified Code(s): S39.91XA - Unspecified injury of abdomen, initial encounter
[2018-07-21 09:06] LABS: MEAN CORPUSCULAR HEMOGLOBIN 31.8 pg (27.0-31.0); MEAN CORPUSCULAR VOLUME 90.8 fL (81.0-99.0); MEAN PLATELET VOLUME 9.9 fL (7.9-10.8); RED BLOOD COUNT 3.78 10^6/uL (4.20-5.40); WHITE BLOOD COUNT 7.9 x10^3/uL (4.8-10.8)
[2018-07-21 13:12] LABS: BASOPHILS % (AUTO) 0.5 %; EOSINOPHILS # (AUTO) 0.1 10^3/uL (0.0-0.7); EOSINOPHILS % (AUTO) 1.7 %; HGB - HEMOGLOBIN 11.7 g/dL (12.0-16.0); LYMPHOCYTES # (AUTO) 1.7 10^3/uL (1.5-3.5); LYMPHOCYTES % (AUTO) 23.7 %; MEAN CORPUSCULAR HEMOGLOBIN 31.7 pg (27.0-31.0); MEAN CORPUSCULAR HGB CONC 34.8 g/dL (32.0-36.0); MEAN CORPUSCULAR VOLUME 91.1 fL (81.0-99.0); MEAN PLATELET VOLUME 9.8 fL (7.9-10.8); MONOCYTES # (AUTO) 0.6 10^3/uL (0.0-1.0); MONOCYTES % (AUTO) 8.1 %; NEUTROPHILS # (AUTO) 4.8 10^3/uL (1.5-6.6); PLT - PLATELET COUNT 169 10^3/uL (130-450); RED CELL DISTRIBUTION WIDTH 13.2 % (12.0-15.0); WHITE BLOOD COUNT 7.3 x10^3/uL (4.8-10.8)
--- NOTE | 2018-07-21 14:11 | Ultrasound Report ---
Reason: abdominal trauma, direct Procedure Date: 07/21/2018 Accession Number: [id number] / [id number] Procedure: US - OB Limited CPT Code: FULL RESULT: EXAM: LIMITED OBSTETRICAL ULTRASOUND EXAM DATE: 07/21/2018 10:50 AM. CLINICAL HISTORY: Abdominal trauma, direct. COMPARISON: OB DETAILED EVAL 04/06/2018 7:51 AM. TECHNIQUE: Real-time sonographic evaluation of the fetus performed by the deep submergence vehicle operator. Multiple dental sales representative static images were saved for review. Additional transvaginal imaging to more accurately evaluate cervical length/placental position/etc. DATING: Established EGA 36 weeks 0 days with ORLIN 08/18/2018. GENERAL EVALUATION Yeung . Cardiac activity: 150 bpm. Presentation: Cephalic. Placenta: Fundal posterior position. Amniotic fluid: Normal TYRELL 12.8 cm. MVP 4.7 cm. ANATOMY Not evaluated MATERNAL STRUCTURES Cervix transabdominally 4.5 cm IMPRESSION: 1. Yeung live intrauterine with gestational age 36 weeks/0 days based on established ORLIN in cephalic presentation. 2. Fundal posterior placenta 3. Normal TYRELL RADIA
--- NOTE | 2018-07-21 14:21 | PROVIDER PROGRESS NOTE ---
Subjective - Prog Note Date Prog Note Date: 07/21/18 Prog Note Time: 14:15 - Subjective Subjective: Pt w/ remaining complaint of tenderness to L wrist. +FM. No bleeding. Objective - Vital Signs/Intake & Output Reviewed Vital Signs: Yes Vital Signs: Vital Signs x48h Temp Pulse Resp BP Pulse Ox 07/21/18 10:00 36.8 C 88 16 122/66 100 07/21/18 08:39 36.4 C L 80 20 125/73 100 - Lab Results Fish Bones: 07/21/18 13:04 Other Labs: Lab Results x24hrs 07/21/18 07/21/18 07/21/18 Range/Units 13:04 08:53 08:53 WBC 7.3 (4.8-10.8) x10^3/uL RBC 3.70 L (4.20-5.40) 10^6/uL Hgb 11.7 L (12.0-16.0) g/dL Hct 33.7 L (37.0-47.0) % MCV 91.1 (81.0-99.0) fL MCH 31.7 H (27.0-31.0) pg MCHC 34.8 (32.0-36.0) g/dL RDW 13.2 (12.0-15.0) % Plt Count 169 (130-450) 10^3/uL MPV 9.8 (7.9-10.8) fL Neut # (Auto) 4.8 (1.5-6.6) 10^3/uL Lymph # (Auto) 1.7 (1.5-3.5) 10^3/uL [place] # (Auto) 0.6 (0.0-1.0) 10^3/uL Eos # (Auto) 0.1 (0.0-0.7) 10^3/uL Baso # (Auto) 0.0 (0.0-0.1) 10^3/uL Absolute Nucleated RBC 0.00 x10^3/uL Nucleated RBC % 0.0 /100WBC Fibrinogen 500 H (220-496) mg/dL Blood Type A POSITIVE Antibody Screen NEGATIVE 07/21/18 Range/Units 08:53 WBC 7.9 (4.8-10.8) x10^3/uL RBC 3.78 L (4.20-5.40) 10^6/uL Hgb 12.0 (12.0-16.0) g/dL Hct 34.3 L (37.0-47.0) % MCV 90.8 (81.0-99.0) fL MCH 31.8 H (27.0-31.0) pg MCHC 35.0 (32.0-36.0) g/dL RDW 13.0 (12.0-15.0) % Plt Count 173 (130-450) 10^3/uL MPV 9.9 (7.9-10.8) fL Neut # (Auto) (1.5-6.6) 10^3/uL Lymph # (Auto) (1.5-3.5) 10^3/uL [place] # (Auto) (0.0-1.0) 10^3/uL Eos # (Auto) (0.0-0.7) 10^3/uL Baso # (Auto) (0.0-0.1) 10^3/uL Absolute Nucleated RBC x10^3/uL Nucleated RBC % /100WBC Fibrinogen (220-496) mg/dL Blood Type Antibody Screen - Diagnostic Imaging Diagnostic Imaging Results: positive: Final report reviewed (US w/o evidence of abruption, AFV WNL, cx >4cm in length) Diagnostic Imaging Comments: L wrist xray pending Assessment/Plan - Problem List (1) Abdominal trauma Impression: No evidence of acute abruption or compromise FHTs consistently cat I & reassuring x4 hours No evidence of abruption on US, cervix long, AFV WNL H/H stable, pt hemodynamically stable. Obstetrically stable w/ persistent L wrist pain; L wrist xray pending. Obstetrically stable for d/c, may d/c IV sites x2, d/c CEFM, ok to d/c patient to home w/ warning s/sx, short interval f/u (this week) as outpatient. May have xray performed as outpatient. Qualifiers: Encounter type: initial encounter Qualified Code(s): S39.91XA - Unspecified injury of abdomen, initial encounter
--- NOTE | 2018-07-21 14:23 | Discharge Plan ---
Discharge Plan Disposition: 01 Home, Self Care Condition: Good Diet: Regular Activity Restrictions: No Restrictions Shower Restrictions: No Driving Restrictions: No Additional Instructions or Follow Up instructions: this week in outpatient clinic No Smoking: If you smoke, Please STOP! Call for help. Follow-up with: Alice Dyer CNM, ARNP [Provider Admit Priv/Credential] -
--- NOTE | 2018-07-21 14:27 | DISCHARGE SUMMARY ---
"Discharge Summary Admit Date: 07/21/18 Discharge Date: 07/21/18 Discharging Provider: Gwendolyn Code Status: Attempt Resuscitation Condition at Discharge: Good Discharge Disposition: 01 Home, Self Care Discharge Facility Name: [facility] - DIAGNOSES Admission Diagnoses: 36 weeks' gestation s/p abdominal trauma L wrist pain Discharge Diagnoses with Status of Each Condition: 36 weeks' gestation s/p abdominal trauma, stable w/o evidence of abruption or compromise - HPI History of Present Illness: Vaishali Bal is a 23 y/o @ 36 weeks' gestation by first trimester US who presented w/ a concern regarding blunt abdominal trauma s/p fall down stairs that resulted in abdominal impact & impact to L hip & wrist. She denied LOF/VB. She reported initially decreased FM but felt FM w/in moments of arrival on the unit. She underwent CEFM x4 hours & FHTs were noted to be consistently category I. She had no abdominal discomfort & no uterine irritability, no tenderness. She underwent limited obstetric US, which did not demonstrate any concerning findings, no evidence of retroplacental fluid collection, AFV WNL, cx 4.5cm. She underwent laboratory evaluation, which demonstrated slightly elevated firbrinogen, which may be a normal variant in , and stable h/h w/o evidence of any hemodynamic instability. Kleihuaer-betke pending & unlikely to return <24 hours. She has residual L wrist pain w/ some limited mobility and an xray was ordered but has not yet been conducted. - CONSULTS | PROCEDURES Procedures: cefm phlebotomy ultrasound - HOSPITAL COURSE Hospital Course: Without evidence of compromise or abruption, vaishali is stable for d/c home. She is awaiting wrist xray, and she can have this conducted as an outpatient or through the ED, if there is difficulty obtaining the imaging in OB triage. She is obstetrically stable for d/c - ALLERGIES Allergies/Adverse Reactions: Allergies Allergy/AdvReac Type Severity Reaction Status Date / Time No Known Drug Allergies Allergy Verified 07/15/18 10:44 - MEDICATIONS Home Medications: Ambulatory Orders Medication Instructions Recorded Confirmed Calcium Carbonate/Vitamin D3 1 tab PO DAILY 12/04/15 12/04/15 [Calcium 500-Vit D3 600 Tablet] Albuterol Sulf [Ventolin Hfa 1 - 2 puffs INH Q4HR PRN #1 inhaler 05/30/18 Inhaler] guaiFENesin/CODEINE [Robitussin AC] 5 - 10 ml PO Q6H PRN #120 ml 05/30/18 Acetaminophen/Cod 300/30 [Tylenol 1 each PO Q4-6H PRN #14 tablet 07/15/18 #3] Benzonatate [Tessalon Perle] 100 - 200 mg PO TID PRN #30 capsule 07/15/18 raNITIdine [Zantac] 1 tab ORAL BID 07/15/18 07/15/18 - LABS Result Diagrams: 07/21/18 13:04 - FOLLOW UP Follow Up: this week in outpatient clinic - TIME SPENT Time Spent in Discharge (Minutes): 10 (d/c from OB triage only; not observation or inpatient admission)"
[2018-07-21 14:49] VITALS: BP 128/62
--- NOTE | 2018-07-21 15:27 | XRAY Report ---
Reason: pt fell Procedure Date: 07/21/2018 Accession Number: [id number] / [id number] Procedure: XR - Wrist 3 View LT CPT Code: FULL RESULT: EXAM: LEFT WRIST RADIOGRAPHY EXAM DATE: 07/21/2018 02:40 PM. CLINICAL HISTORY: Patient fell. COMPARISON: WRIST 4 VIEW LT 12/24/2016 11:19 AM. TECHNIQUE: 3 views. FINDINGS: Bones: Normal. No fractures or bone lesions. Joints: Normal. No subluxations. Soft Tissues: Normal. No soft tissue swelling. IMPRESSION: Normal wrist radiography. RADIA
== END 2018-07-21 15:00 | disposition home or self-care (01) ==
LOC: WFO 08:27 → FBP 08:29 → WFO 15:00
PROVIDERS: ATTEND Registered Nurse
DX: O9A.213 Injury, poisoning and certain other consequences of external causes complicating pregnancy, third trimester (principal); S39.91XA Unspecified injury of abdomen, initial encounter; Z3A.36 36 weeks gestation of pregnancy; W10.9XXA Fall (on) (from) unspecified stairs and steps, initial encounter; Y92.009 Unspecified place in unspecified non-institutional (private) residence as the place of occurrence of the external cause; S60.512A Abrasion of left hand, initial encounter; S60.511A Abrasion of right hand, initial encounter; M25.532 Pain in left wrist; O98.813 Other maternal infectious and parasitic diseases complicating pregnancy, third trimester; B37.3 Candidiasis of vulva and vagina; O99.89 Other specified diseases and conditions complicating pregnancy, childbirth and the puerperium; L40.0 Psoriasis vulgaris
CPT/HCPCS: 36415; 76815; 85025; 85027; 85384; 86850; 86900; 86901; 99214

== ENCOUNTER 2018-08-06 14:03 | Outpatient (CLI) | payer OTHER ==
[2018-08-07 11:57] LABS: HEPATITIS C ANTIBODY NON-REACTIVE (NON-REACTIVE)
[2018-08-07 13:01] LABS: HIV AG/AB 4TH GEN NON-REACTIVE (NON-REACTIVE)
== END 2018-08-06 23:59 | disposition home or self-care (01) ==
LOC: LAB.N 14:03
PROVIDERS: ATTEND Registered Nurse
DX: Z34.90 Encounter for supervision of normal pregnancy, unspecified, unspecified trimester (principal)
CPT/HCPCS: 36415; 81599; 86592; 86803; 87389

== ENCOUNTER 2018-08-11 07:31 | Inpatient (IN) | payer OTHER ==
[2018-08-11] MEDS ORDERED: PENICILLIN G POTASSIUM 5,000,000 UNIT in SODIUM CHLORIDE 0.9% MINIBAG 100 ML IV ONE (07:51)
[2018-08-11] MEDS ORDERED: ONDANSETRON 4 MG/2 ML VIAL IVP PRN ×2 (07:51→16:54)
[2018-08-11] MEDS ORDERED: SODIUM CHLORIDE FLUSH 0.9% 10 ML SYRINGE IVP PRN (07:51)
[2018-08-11] MEDS ORDERED: miSOPROStol 100 MCG TABLET VG SCH (08:00)
[2018-08-11] MEDS ORDERED: FLUCONAZOLE 200 MG/100 ML 100 ML IV SCH (09:00)
[2018-08-11] MEDS ORDERED: SODIUM CHLORIDE FLUSH 0.9% 10 ML SYRINGE IVP SCH (09:00)
[2018-08-11 09:40] LABS: BASOPHILS % (AUTO) 0.6 %; EOSINOPHILS # (AUTO) 0.2 10^3/uL (0.0-0.7); EOSINOPHILS % (AUTO) 2.3 %; HGB - HEMOGLOBIN 11.7 g/dL (12.0-16.0); LYMPHOCYTES # (AUTO) 1.7 10^3/uL (1.5-3.5); LYMPHOCYTES % (AUTO) 24.4 %; MEAN CORPUSCULAR HEMOGLOBIN 31.3 pg (27.0-31.0); MEAN CORPUSCULAR HGB CONC 34.2 g/dL (32.0-36.0); MEAN CORPUSCULAR VOLUME 91.4 fL (81.0-99.0); MEAN PLATELET VOLUME 10.7 fL (7.9-10.8); MONOCYTES # (AUTO) 0.6 10^3/uL (0.0-1.0); MONOCYTES % (AUTO) 8.6 %; NEUTROPHILS # (AUTO) 4.4 10^3/uL (1.5-6.6); NEUTROPHILS % (AUTO) 64.1 %; PLT - PLATELET COUNT 157 10^3/uL (130-450); RED BLOOD COUNT 3.75 10^6/uL (4.20-5.40); RED CELL DISTRIBUTION WIDTH 13.2 % (12.0-15.0); WHITE BLOOD COUNT 6.8 x10^3/uL (4.8-10.8)
[2018-08-11] MEDS ORDERED: PENICILLIN G POTASSIUM 2,500,000 UNIT in SODIUM CHLORIDE 0.9% 100ML 100 ML IV SCH (12:00)
[2018-08-11] MEDS: PENICILLIN G POTASSIUM 2,500,000 UNIT in SODIUM CHLORIDE 0.9% 100ML 100 ML IV SCH ×2 (13:19→17:00)
--- NOTE | 2018-08-11 14:52 | HISTORY & PHYSICAL EXAMINATION ---
Admit History - Visit Reason Visit Reason: Other - : 2 Parity: 1 Premature: 0 Ectopic: 0 : 0 Care: positive: [facility] Risk/History: positive: None Complications This : positive: None Smoking Status: Never smoker - Mother's Labs Mother's Blood Type: positive: A Mother's RH: positive: Positive GBS: positive: Group B Strep Positive Rubella Status: positive: Immune Meds/Allgy - Home Medications Home Medications: Ambulatory Orders Medication Instructions Recorded Confirmed Calcium Carbonate/Vitamin D3 1 tab PO DAILY 12/04/15 12/04/15 [Calcium 500-Vit D3 600 Tablet] Albuterol Sulf [Ventolin Hfa 1 - 2 puffs INH Q4HR PRN #1 inhaler 05/30/18 Inhaler] guaiFENesin/CODEINE [Robitussin AC] 5 - 10 ml PO Q6H PRN #120 ml 05/30/18 Acetaminophen/Cod 300/30 [Tylenol 1 each PO Q4-6H PRN #14 tablet 07/15/18 #3] Benzonatate [Tessalon Perle] 100 - 200 mg PO TID PRN #30 capsule 07/15/18 raNITIdine [Zantac] 1 tab ORAL BID 07/15/18 07/15/18 - Allergies Allergies/Adverse Reactions: Allergies Allergy/AdvReac Type Severity Reaction Status Date / Time No Known Drug Allergies Allergy Verified 07/15/18 10:44 Review of Systems - Constitutional Constitutional: denies: Fatigue, Fever, Chills, Malaise - Eyes Eyes: denies: Blurred vision, Spots in vision, Dipolpia - Cardiovascular Cariovascular: denies: Palpitations, Chest pain, Edema - Respiratory Respiratory: denies: SOB at rest - Gastrointestinal Gastrointestinal: denies: Abdominal pain, Constipation, Diarrhea, Change in bowel habits, Nausea, Vomiting - Integumentary Integumentary: denies: Rash, Pruritis - Neurological Neurological: denies: Headache - Psychiatric Psychiatric: denies: Depression, Anxiety Physical - Abdominal Exam Vital Signs: Temp Pulse Resp BP Pulse Ox 37.0 C 68 18 08/11/18 09:00 08/11/18 09:00 08/11/18 09:00 Contraction Frequency (min/apart): 3-5 Contraction Intensity: positive: Moderate Uterine Resting Tone: positive: Soft - Monitoring Strip Review: positive: Category I - Presentation Presentation: positive: Vertex - Vaginal Exam Membranes: positive: Membranes ruptured Dilation (in cm): 4 Effacement (%): 80 Station: positive: -2 Cervical Position: positive: Posterior - Speculum Exam Speculum Exam Performed: positive: No Plan for Labor - Plan For Labor I expect patient to be DC'd or transferred within 96 hours.: Yes Plan for Labor: HPI: This 23yo @ 39.0wks gestation by LMP = 9.3wk U/S presented on 08/11/2018 for elective IOL at term gestation. SVE deferred secondary to absence of contractions and SVE 1 week ago closed/thick/high. Vertex on leopolds. Pt denies VB, Lof, or contractions upon her arrival. She reports +FM. She denies GARCIA, visual disturbances, RUQ or epigastric pain and denies edema. She reports continued vaginal discomfort and has struggled with recurrent bacterial vaginosis and vaginal beau prior to and throughout her entire which has been unresponsive to conventional treatment and we had previously discussed administration of IV therapy intrapartum. She had a fall at 35wks gestation and work-up for complications related to the fall were completed and all negative. She tested positive for GBS at 36wks and will receive IV penicillin per protocol for prophylaxis. She was placed into an observation status on WHFBP for cervical ripening. Dating criteria: Initial U/S 12/17/2017 @ 9w3d c/w LMP dating. Medical Hx: Recurrent vaginitis/beau Surgical Hx: Tonsillectomy 2004, Cholescystectomy 2012 Family Hx: no notable Social Hx: Never smoker, No ETOH or IVDA. Nikolay, son Gavin. Medications: Zantac; Topical nystatin; boric acid suppositories; PNV Allergies: NKDA Influenza administered: 01/16/2018 Tdap administered: 06/22/2018 GBS POSITIVE Physical Exam: Normocephalic, atraumatic Heart RRR w/o M/G/R Lungs CTAB Abdomen gravid, soft, nontender FHR baseline 130s, moderate variability, + accels, no decels Contractions palpate moderate every 3-5 minutes with soft resting tone SVE 4/80/-2, posterior, vertex AROM at 1349 and noted to be a moderate amount of light meconium stained amniotic fluid Bilateral LE's trace edema Mood is positive, supportive at the bedside Assessment: 23yo @ 39.0wks gestation by L=9.3wk U/S GBS positive Recurrent vaginitis AROM x 1 hour Active labor Plan: S/p 1 dose of misoprostol 50mcg BC S/p 1 dose of IV fluconazole for treatment of persistent/recurrent vaginal beau - will repeat dose 24hrs s/p initial infusion S/p loading dose of penicillin and 1 maintenance dosage of pencillin per protocol for treatment of GBS positive status - will continue treatment per protocol for GBS prophylaxis Continuous monitoring Notification of western felt hat blocker and RT at delivery secondary to meconium stained amniotic fluid Epidural per maternal request Anticipate spontaneous vaginal delivery. Patient, , and L&D RN presents for discussion of plan and agree. Denies further questions or concerns at this time.
[2018-08-11] MEDS ORDERED: fent/BUPIV 2 MCG/0.125% 250 ML EP ONE (16:39)
[2018-08-11] MEDS ORDERED: NALBUPHINE 10 MG/ML AMP IVP PRN (16:54)
[2018-08-11] MEDS ORDERED: NALOXONE 0.4 MG/ML VIAL IVP PRN (16:54)
[2018-08-11] MEDS ORDERED: LACTATED RINGERS 500 ML IV ONE (16:54)
[2018-08-11] MEDS ORDERED: METOCLOPRAMIDE 10 MG/2 ML VIAL IVP PRN (16:54)
[2018-08-11] MEDS ORDERED: ePHEDrine 50 MG/ML VIAL IVP PRN (16:54)
[2018-08-11] MEDS ORDERED: diphenhydrAMINE INJ 50 MG/ML VIAL IVP PRN (16:54)
[2018-08-11] MEDS ORDERED: fent/BUPIV 2 MCG/0.125% 250 ML EP PRN (16:54)
--- NOTE | 2018-08-11 16:59 | ANESTHESIA ---
Pre-Anesthesia VS, & Labs - Diagnosis desires labor analgesia - Procedure Labor epidural Vital Signs: Temp Pulse Resp BP Pulse Ox 37.0 C 68 18 08/11/18 09:00 08/11/18 09:00 08/11/18 09:00 Height 5 ft 4 in Weight (kg) 95.254 kg Body Mass Index 35.2 - NPO Other (clears from now until delivery) - Is Patient ?: Yes - Lab Results Current Lab Results: Laboratory Tests 08/11/18 08:24: WBC 6.8, RBC 3.75 L, Hgb 11.7 L, Hct 34.2 L, MCV 91.4, MCH 31.3 H, MCHC 34.2, RDW 13.2, Plt Count 157, MPV 10.7, Neut # (Auto) 4.4, Lymph # (Auto) 1.7, Lares # (Auto) 0.6, Eos # (Auto) 0.2, Baso # (Auto) 0.0, Absolute Nucleated RBC 0.00, Nucleated RBC % 0.0 Fish Bones: 08/11/18 08:24 Home Medications and Allergies Active Medications Diphenhydramine HCl (Benadryl Inj) 12.5 - 25 mg IVP Q6HR PRN PRN Reason: ITCHING Ephedrine Sulfate () 5 mg IVP Q5M PRN PRN Reason: For SBP<100;give until SBP>100 Lactated Ringer's (Lr) 1,000 mls @ 100 mls/hr IV .Q10H TREY Fluconazole (Diflucan 200 Mg/100 Ml) 100 mls @ 100 mls/hr IV DAILY TREY Stop: 08/12/18 09:59 Last Admin: 08/11/18 10:00 Dose: 100 mls/hr Penicillin G Potassium 2,500, (000 unit/ Sodium Chloride) 100 mls @ 200 mls/hr IV Q4H TREY Last Admin: 08/11/18 13:19 Dose: 200 mls/hr Fentanyl/Bupivacaine/Sodium Chlor (Fent/Bupiv 2 Mcg/0.125%) 250 mls @ 0 mls/hr EP .Q0M PRN; Protocol PRN Reason: PAIN Lactated Ringer's (Lr) 500 mls @ 999 mls/hr IV ONCE ONE Stop: 08/11/18 17:24 Metoclopramide HCl (Reglan Inj) 10 mg IVP Q6HR PRN PRN Reason: Nausea / Vomiting Misoprostol (Cytotec) 50 mcg VG Q4HR [facility] Last Admin: 08/11/18 09:00 Dose: 50 mcg Nalbuphine HCl (Nubain) 2.5 - 5 mg IVP Q4H PRN PRN Reason: ITCHING Naloxone HCl (Narcan) 0.1 mg IVP Q2M PRN PRN Reason: RR<8 Ondansetron HCl (Zofran Inj) 4 mg IVP Q4HR PRN PRN Reason: Nausea / Vomiting Ondansetron HCl (Zofran Inj) 4 mg IVP Q6HR PRN PRN Reason: Nausea / Vomiting Ranitidine HCl (Zantac) 150 mg PO DAILY TREY Sodium Chloride (Normal Saline Flush 0.9%) 10 ml IVP 0100,0900,1700 TREY Sodium Chloride (Normal Saline Flush 0.9%) 10 ml IVP PRN PRN PRN Reason: NEEDED PER PROVIDER ORDERS Calcium Carbonate/Vitamin D3 [Calcium 500-Vit D3 600 Tablet] 1 tab PO DAILY 12/04/15 raNITIdine [Zantac] 1 tab ORAL BID 07/15/18 Allergies/Adverse Reactions: Allergies Allergy/AdvReac Type Severity Reaction Status Date / Time No Known Drug Allergies Allergy Verified 07/15/18 10:44 Anes History & Medical History - Anesthetic History Anesthesia Complications: reports: No previous complications - Medical History Cardiovascular: reports: None Pulmonary: reports: None Gastrointestinal: reports: GERD, Crohn's disease Urinary: reports: None Neuro: reports: None Musculoskeletal: reports: None Smoking Status: Never smoker - Surgical History General: Cholecystectomy Eyes Ears Nose Throat (EENT): Tonsil/Adenoidectomy - Obstetrical History : 2 Parity: 1 Events: positive: None Complications: positive: Treated for GBS/UTI Plan for Delivery: vaginal with epidural OB Anesthesia History: vaginal with epidural that worked well Exam General: Alert Dental: WNL Mouth Opening: Greater than 4 Fingerbreadths Mallampati classification: II Thyromental Distance: greater than 6 cm Respiratory: Lungs clear Cardiovascular: Regular rate Mental/Cognitive Status: Alert/Oriented X3 Plan Anesthesia Type: Epidural Consent for Procedure(s) Verified and Reviewed: Yes Code Status: Attempt Resuscitation ASA classification: 2-Mild systemic disease Is this case an emergency?: No
--- NOTE | 2018-08-11 18:21 | PROVIDER PROGRESS NOTE ---
Labor Progress Note - Uterine Monitoring Uterine Monitoring Mode: positive: External toco Contraction Frequency (min/apart): 2-4 Contraction Intensity: positive: Strong Uterine Resting Tone: positive: Soft - Monitoring Monitor Mode: positive: External ultrasound Heart Rate Baseline: 120 Heart Rate Variability: positive: Moderate (6-25 bmp) Accelerations: positive: Present, 15x15 Decelerations: positive: Early, Intermittent (<50% x20 min) Strip Review: positive: Category I - Vaginal Exam Dilation (in cm): 8 Effacement (%): 100 Station: 1 Cervical Position: Anterior - Labor Progress Note Labor Progress Note/Additional Text: S: Feeling comfortable with epidural. 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 Otherwise denies concerns or complaints. supportive at the bedside. O: BP 120/63, HR 71 FHR baseline 120s, moderate variability, + accels, intermittent variable decelerations - overall reassuring Contractions palpate firm every 2-4 minutes with soft resting tone. SVE 8/100/+1, vertex A: 23yo @ 39.0wks gestation GBS positive - s/p 2 doses penicillin for GBS prophylaxis Active labor Epidural for pain management FHR Category I P: Continuous monitoring Continue expectant management Repeat SVE in 2 hours or sooner PRN. Anticipate spontaneous vaginal delivery.
[2018-08-11] MEDS ORDERED: OXYTOCIN/SODIUM CHLORIDE 500 ML IV ONE (18:56)
[2018-08-11] MEDS ORDERED: LIDOCAINE-MPF 1% 30 ML VIAL ONE (18:57)
[2018-08-11] MEDS: LACTATED RINGERS 1,000 ML IV SCH ×2 (19:38→19:40)
[2018-08-11] MEDS ORDERED: WITCH HAZEL/GLYCERIN 1 EACH MED..PAD TOP PRN (20:26)
[2018-08-11] MEDS ORDERED: HYDROCORTISONE 1% CREAM 28 GM TUBE PR PRN (20:26)
[2018-08-11] MEDS ORDERED: OXYTOCIN/SODIUM CHLORIDE 500 ML IV PRN (20:29)
--- NOTE | 2018-08-11 20:41 | DELIVERY NOTE ---
Delivery Note - Labor Labor: positive: Augmented by ARM, Other - Delivery Method Delivery Method: positive: Spontaneous vaginal delivery - Presentation Presentation: positive: Vertex, KRISTINA - right occiput anterior - Nuchal Cord Nuchal Cord: positive: None - Amniotic Fluid Description Amniotic Fluid Description: positive: Light meconium - Episiotomy Type Episiotomy Type: positive: None - Laceration Laceration: positive: 1st degree - Suture Suture Type: positive: Vicryl Suture Size: positive: 3-0 - Delivery Outcome Delivery Outcome: positive: Livebirth - : positive: Placed in direct skin contact with mother, Bulb syringe, Stimulated, Warmed, [place] used sex: positive: Female - Cord Cord: positive: 3 vessels - Placenta Placenta: positive: Intact, Spontaneous - Estimated Blood Loss Estimated Blood Loss (in cc): 200 - Post Delivery Events Post Delivery Events: positive: No post delivery events - Delivery Comments (Free Text/Narrative) Delivery Comments (Free Text/Narrative): This 23yo @ 39.0wks gestation presented to [facility] on 08/11/2018 at 0800 for elective IOL. She received 1 dose of 50mcg BC misoprostol for preinduction cervical ripening. AROM occurred at 1340 and was noted to be a moderate amount of light meconium stained amniotic fluid. FHR pattern demonstrated baseline 120s in a Category I pattern throughout labor. Normal labor course. Epidural placed per maternal request. She was noted to be GBS positive and received 1 loading dose and 2 maintenance doses of penicillin per protocol. She progressed to c/c/+2 at 1931 with onset of active spontaneous pushing with contractions at 1934. She spontaneously delivered a viable female at 1937 on 08/11/2018. No nuchal cord. 's 6/9 at 1 and 5 minutes respectively. The was placed on maternal abdomen, stimulated, dried, and placed skin to skin. Pitocin administered via IV for hemostasis. The umbilical cord was allowed to stop pulsating at which time it was doubly clamped by CNM and cut by FOB. Cord blood was obtained. Placenta delivered spontaneously and intact at 1943. 3VC. EBL 200mL. Uterine fundus firm and there is no excessive bleeding. The perineum, vagina, and cervix were inspected and found to have 1st degree perineal laceration which was repaired using 3-[address]-1 needle in standard fashion under sterile conditions. Vaginal examination following repair was done. Tissues well approximated. initiated. Family bonding well. Both mother and baby were left in stable condition.
[2018-08-11] MEDS: DOCUSATE SODIUM 100 MG CAPSULE PO SCH (21:34)
[2018-08-11] MEDS: IBUPROFEN 800 MG TABLET PO SCH (21:35)
[2018-08-11] MEDS: ACETAMINOPHEN 500 MG TABLET PO SCH (21:35)
[2018-08-11] MEDS ORDERED: CALCIUM CARBONATE CHEW 500 MG TABLET PO PRN (22:39)
[2018-08-12] MEDS: IBUPROFEN 800 MG TABLET PO SCH ×3 (03:43→16:48)
[2018-08-12] MEDS ORDERED: FLUCONAZOLE 200 MG/100 ML 100 ML IV SCH ×2 (06:30→10:00)
[2018-08-12] MEDS: ACETAMINOPHEN 500 MG TABLET PO SCH ×2 (08:17→16:47)
[2018-08-12] MEDS: DOCUSATE SODIUM 100 MG CAPSULE PO SCH (08:44)
[2018-08-12] MEDS ORDERED: MAGNESIUM HYDROXIDE 2,400 MG/30 ML UDC PO PRN (09:09)
--- NOTE | 2018-08-12 13:20 | ANESTHESIA POST OP EVALUATION ---
Anesthesia Post Eval - Post Anesthesia Eval CV Function Including HR & BP: positive: Stable : : : Pain Control: positive: Adequate Nausea & Vomiting: positive: Negative : Mental Status: positive: Appropriate Anesthesia Complications: positive: None - Other Details/Therapies Other Details/Therapies: Patient reports she had good pain control with epidural. All effects have re solved and she denies any headache. No apparent anesthetic complications.
--- NOTE | 2018-08-12 17:11 | Discharge Plan ---
Discharge Plan Disposition: 01 Home, Self Care Condition: Good Diet: Regular Activity Restrictions: No Restrictions Shower Restrictions: No Driving Restrictions: No Weight Bearing: Full Weight No Smoking: If you smoke, Please STOP! Call for help. Follow-up with: Alice Dyer CNM, ARNP [Provider Admit Priv/Credential] -
--- NOTE | 2018-08-12 17:16 | PROVIDER PROGRESS NOTE ---
Subjective - Subjective Subjective: S: Bonding well with baby. without difficulty. Reports more cramping with than she remembered after her first delivery. Has been taking oral pain medication which has been helpful in managing her pain. Bleeding decreased and is light. supportive at the bedside. They are anxious to go home this evening. O: BP 125/69, HR 70, RR 16, T 36.7 Heart RRR w/o M/G/R, lungs CTAB, abdomen soft and nontender with fundus firm at U. Perineum intact and repair without edema. Light lochia rubra. Bilateral LE's no edema. A: 23yo -->P2 PPD#1 s/p TSVD of viable female 1st degree perineal laceration - repair intact P: Reviewed self care and warning s/sx Advised continuation of PNV while Advised continued use of OTC ibuprofen and tylenol PO for pain management. Pt to receive an additional dosage of 400mg IV fluconazole today prior to d/c her IV for management of persistent vaginal beau. Pt verbalized understanding and agrees to above plan. She denies questions or concerns today and will f/u with myself at [facility] in 1 week for support visit and in 3 weeks for routine pp visit. Objective - Vital Signs/Intake & Output Vital Signs: Vital Signs x48h Temp Pulse Resp BP Pulse Ox 08/12/18 16:54 36.7 C 70 16 125/69 100 Intake & Output: Intake & Output 08/09/18 08/10/18 08/11/18 08/12/18 23:59 23:59 23:59 23:59 Intake Total 1403.333 633 Output Total 1015 200 Balance 388.333 433 - Lab Results Fish Bones: 08/11/18 08:24
--- NOTE | 2018-08-12 18:26 | DISCHARGE SUMMARY ---
Physician: JOSE Gomez DATE OF ADMISSION: 08/11/2018 DATE OF DISCHARGE: 08/12/2018 DIAGNOSES ON ADMISSION 1. A 23-year-old G2, P1-0-0-1, at 39.0 weeks gestation. 2. Elective induction of labor with pre-induction cervical ripening. 3. Group B streptococcus positive. 4. Persistent vaginal Deborah, unresponsive to traditional treatment. DIAGNOSES ON DISCHARGE 1. A 23-year-old G2, P2-0-0-2, status post spontaneous vaginal delivery on 08/11/2018. 2. . 3. Normal recovery. BRIEF HISTORY: She is a patient of [facility] who presented on 08/11/2018 for electi ve induction of labor at 39 weeks' gestation. She received 1 dose of 50 mg misoprostol buccally. Sh e was treated adequately per protocol for GBS prophylaxis. She was also given 1 dose of 200 mg IV fl uconazole for treatment of persistent vaginal Deborah. She progressed to spontaneously deliver a via ble female infant on 08/11/2018 at 1937. Apgars were 6 and 9 at 1 and 5 minutes respectively. EBL 2 00 mL. She was noted to have a first-degree perineal laceration, which was repaired using a 3-0 Vicr yl on a CT-1 needle in standard fashion under sterile conditions. She has been doing well in her course. She received an additional dose of 400 mg IV fluco nazole prior to discontinuation of her IV. She is ambulating without difficulty and her lochia is no rmal. Her pain is well controlled with oral medications. She will be discharged home today on postp artum day #1 with instructions to continue her vitamin while and continue over -the-counter ibuprofen and Tylenol for pain management as needed. She intends to follow up with torri watson at [facility] in 1 week for support visit and in 3 weeks for routine pos tpartum visit. She has been given precautions to call if she has any worsening fevers, chills, abdom inal pain, increased bleeding, or foul-smelling vaginal lochia. TD: 08/12/2018 17:27
[2018-08-12 19:56] VITALS: BP 117/69
--- NOTE | 2018-08-12 20:47 | Labor Flowsheet ---
Labor Flowsheet Datetime Report Generated by CPN: 08/12/2018 20:47 Datetime: 08/12/2018 19:53 VITAL SIGNS NBP Sys/Emily/Mean (mmHg): 117 : 69 : 76 Pulse: 69 COMMUNICATION LaborFlag: Labor Datetime: 08/11/2018 22:10 SpO2 (%): 100 Datetime: 08/11/2018 20:10 VAGINAL EXAM Membranes Ruptured Date/Time: 08/11/2018 13:40
== END 2018-08-12 20:35 | disposition home or self-care (01) | DRG 806 ==
LOC: WFO 07:31 → FBP 07:35 → WFO 18:13 → FBP 18:14
PROVIDERS: ADMIT Nurse Practitioner Obstetrics & Gynecology; ATTEND Nurse Practitioner Obstetrics & Gynecology
PROC: 10E0XZZ Delivery of Products of Conception, External Approach (ICD-10-PCS; principal; 2018-08-11)
PROC: 0HQ9XZZ Repair Perineum Skin, External Approach (ICD-10-PCS; 2018-08-11)
DX: O99.820 Streptococcus B carrier state complicating pregnancy (principal); O98.82 Other maternal infectious and parasitic diseases complicating childbirth; Z37.0 Single live birth; O75.3 Other infection during labor; B37.3 Candidiasis of vulva and vagina; O77.0 Labor and delivery complicated by meconium in amniotic fluid; O70.0 First degree perineal laceration during delivery; O99.62 Diseases of the digestive system complicating childbirth; K21.9 Gastro-esophageal reflux disease without esophagitis; Z3A.39 39 weeks gestation of pregnancy; Z87.09 Personal history of other diseases of the respiratory system
CPT/HCPCS: 85025; 96365; 96375; A9270; G0378; G0379; J7120

== ENCOUNTER 2018-08-15 13:55 | Outpatient (CLI) | payer OTHER ==
--- NOTE | 2018-08-15 18:13 | Labor Flowsheet ---
Labor Flowsheet Datetime Report Generated by CPN: 08/15/2018 18:13 Datetime: 08/12/2018 19:53 VITAL SIGNS NBP Sys/Emily/Mean (mmHg): 117 : 69 : 76 Pulse: 69 COMMUNICATION LaborFlag: Labor Datetime: 08/11/2018 22:10 SpO2 (%): 100 Datetime: 08/11/2018 20:10 VAGINAL EXAM Membranes Ruptured Date/Time: 08/11/2018 13:40
== END 2018-08-15 15:00 | disposition home or self-care (01) ==
LOC: WFO 13:55 → FBP 13:59 → WFO 15:00
PROVIDERS: ATTEND Nurse Practitioner Obstetrics & Gynecology
DX: O92.70 Unspecified disorders of lactation (principal)
CPT/HCPCS: 99403